=== PATIENT | female | born 1930 | race Caucasian/White ===

== ENCOUNTER 2017-12-13 07:16 | Emergency (ER) | payer SELFPAY ==
[~2017-12-13] VITALS: Ht 157.5 cm; Wt 74.4 kg
[2017-12-13] MEDS ORDERED: OMEPRAZOLE MAGN20 MG PO (07:25)
[2017-12-13] MEDS ORDERED: NEURAPTINE1 GM (07:25)
[2017-12-13] MEDS ORDERED: LISI5 (07:26)
[2017-12-13] MEDS ORDERED: DIPYRIDAMOLE1 GM PO (07:29)
[2017-12-13] MEDS ORDERED: LEVSOD75 PO (07:30)
[2017-12-13] MEDS ORDERED: FURO20 PO (07:30)
[2017-12-13] MEDS ORDERED: Aspir 8181 MG PO (07:30)
== END 2017-12-13 09:09 | disposition home or self-care (01) ==
LOC: ER 07:16
DX: R04.0 Epistaxis (principal); E11.9 Type 2 diabetes mellitus without complications; I10 Essential (primary) hypertension; Z79.899 Other long term (current) drug therapy; Z79.82 Long term (current) use of aspirin
CPT/HCPCS: 99283

== ENCOUNTER 2019-06-11 19:32 | Inpatient (IN) | payer OTHER, MEDICARE ==
[~2019-06-11] VITALS: Ht 157.5 cm; Wt 75.9 kg
[~2019-06-11 19:32] MED LIST: Aspir 8181 MG PO; DIPYRIDAMOLE1 GM PO; FURO20 PO; LEVSOD75 PO; LISI5; NEURAPTINE1 GM; OMEPRAZOLE MAGN20 MG PO
[2019-06-11 20:02] LABS: BASOPHILS ABSOLUTE AUTO 0.05 K/mm3 (0.00-0.23); BASOPHILS PERCENT AUTO 0 % (0-2); EOSINOPHILS ABSOLUTE AUTO 0.01 K/mm3 (0.00-0.68); EOSINOPHILS PERCENT AUTO 0 % (0-6); Hematocrit 39.1 % (33.0-51.0); Hemoglobin 13.2 g/dL (11.5-16.0); IMMATURE GRAN ABSOLUTE AUTO 0.06 K/mm3 (0.00-0.10); IMMATURE GRAN PERCENT AUTO 1 % (0-1); LYMPHOCYTES ABSOLUTE AUTO 1.23 K/mm3 (0.84-5.20); LYMPHOCYTES PERCENT AUTO 10 % (21-46); MONOCYTES ABSOLUTE AUTO 1.28 K/mm3 (0.16-1.47); MONOCYTES PERCENT AUTO 10 % (4-13); Mean Corpuscular HGB 32.2 pg (26.0-34.0); Mean Corpuscular HGB Conc 33.8 g/dL (31.5-36.5); Mean Corpuscular Volume 95 fL (80-100); Mean Platelet Volume 10.2 fL (9.1-12.4); NEUTROPHILS ABSOLUTE AUTO 10.34 K/mm3 (1.96-9.15); NEUTROPHILS PERCENT AUTO 80 % (41-73); Platelet Count 285 K/mm3 (150-400); RDW Coefficient Variation 15.7 % (11.7-14.2); RDW Standard Deviation 54.9 fL (35.1-46.3); White Blood Cell Count 12.97 K/mm3 (4.00-11.30)
[2019-06-11] MEDS ORDERED: ALPR.25 PO (20:14)
[2019-06-11] MEDS ORDERED: Vitamin D2000 UNIT PO (20:14)
[2019-06-11 20:15] LABS: International Normalized Ratio 1.01; Prothrombin Time Results 10.8 Sec (9.7-11.5)
[2019-06-11] MEDS ORDERED: Felodipine ER2.5 MG PO (20:15)
[2019-06-11] MEDS ORDERED: GABA100 PO (20:15)
[2019-06-11] MEDS ORDERED: LEVSOD75 PO (20:15)
[2019-06-11] MEDS ORDERED: DIPYRIDAMOLE1 GM PO (20:15)
[2019-06-11] MEDS ORDERED: FURO20 PO (20:15)
[2019-06-11] MEDS ORDERED: OMEP20ER PO (20:16)
[2019-06-11] MEDS ORDERED: LISI20 PO (20:16)
[2019-06-11] MEDS ORDERED: Norco 5-325 Ta1 EACH PO (20:17)
[2019-06-11] MEDS ORDERED: ONDA4 PO (20:17)
[2019-06-11 20:26] LABS: Alanine Aminotransfer (ALT/SGP 18 U/L (12-78); Albumin, Blood 2.9 g/dL (3.4-5.0); Albumin/Globulin Ratio 0.8 (0.8-1.8); Alk Phos 60 U/L (50-136); Anion Gap 5 mmol/L (6-16); Aspartate Aminotrans (AST/SGOT 25 U/L (12-37); Bilirubin, Total 0.4 mg/dL (0.1-1.0); Blood Urea Nitrogen 11 mg/dL (8-24); Bun/Creatinine Ratio 17.1 (12.0-20.0); CO2, Blood 27 mmol/L (21-32); Calcium, Blood 8.1 mg/dL (8.5-10.1); Chloride, Blood 104 mmol/L (98-108); Creatinine, Blood 0.64 mg/dL (0.40-1.00); Globulin, Blood 3.6 g/dL (2.2-4.0); Glomerular Filtration Rate >60 (60-); Glucose, Blood 112 mg/dL (70-99); Magnesium, Blood 1.8 mg/dL (1.6-2.4); Potassium, Blood 3.7 mmol/L (3.5-5.5); Sodium, Blood 136 mmol/L (136-145); Total Protein, Blood 6.5 g/dL (6.4-8.2); Troponin I <0.015 ng/mL (0.000-0.040)
[2019-06-11 23:23] LABS: Thyroid Stimulating Hormone 0.485 uIU/mL (0.360-4.800)
--- NOTE | 2019-06-12 03:36 | NUR ---
ADMIT NOTE PATIENT PLEASENT AND COOPERATIVE UPON ADMIT. PATIENT DENIES ANY PAIN OR DISCOMFORT AT THIS TIME. PATIENT SETTLED IN AND ORIENTED TO THE ROOM, UNIT, AND CALL LIGHT. PATIENT CURRENTLY RESTING IN BED, WATCHING TV. WILL CONTINUE TO MONITOR PATIENT.
[2019-06-12 04:23] LABS: BASOPHILS ABSOLUTE AUTO 0.03 K/mm3 (0.00-0.23); BASOPHILS PERCENT AUTO 0 % (0-2); EOSINOPHILS ABSOLUTE AUTO 0.04 K/mm3 (0.00-0.68); EOSINOPHILS PERCENT AUTO 0 % (0-6); Hematocrit 38.3 % (33.0-51.0); Hemoglobin 12.6 g/dL (11.5-16.0); IMMATURE GRAN ABSOLUTE AUTO 0.04 K/mm3 (0.00-0.10); IMMATURE GRAN PERCENT AUTO 0 % (0-1); LYMPHOCYTES ABSOLUTE AUTO 1.25 K/mm3 (0.84-5.20); LYMPHOCYTES PERCENT AUTO 12 % (21-46); MONOCYTES ABSOLUTE AUTO 1.18 K/mm3 (0.16-1.47); MONOCYTES PERCENT AUTO 11 % (4-13); Mean Corpuscular HGB 31.8 pg (26.0-34.0); Mean Corpuscular HGB Conc 32.9 g/dL (31.5-36.5); Mean Corpuscular Volume 97 fL (80-100); Mean Platelet Volume 10.3 fL (9.1-12.4); NEUTROPHILS ABSOLUTE AUTO 8.13 K/mm3 (1.96-9.15); NEUTROPHILS PERCENT AUTO 76 % (41-73); Platelet Count 257 K/mm3 (150-400); RDW Coefficient Variation 15.6 % (11.7-14.2); RDW Standard Deviation 54.9 fL (35.1-46.3); Red Blood Cell Count 3.96 M/mm3 (3.80-5.20); White Blood Cell Count 10.67 K/mm3 (4.00-11.30)
[2019-06-12 04:49] LABS: Alanine Aminotransfer (ALT/SGP 17 U/L (12-78); Albumin, Blood 2.7 g/dL (3.4-5.0); Albumin/Globulin Ratio 0.8 (0.8-1.8); Alk Phos 58 U/L (50-136); Anion Gap 6 mmol/L (6-16); Aspartate Aminotrans (AST/SGOT 12 U/L (12-37); Bilirubin, Total 0.5 mg/dL (0.1-1.0); Blood Urea Nitrogen 9 mg/dL (8-24); Bun/Creatinine Ratio 12.6 (12.0-20.0); CO2, Blood 28 mmol/L (21-32); Calcium, Blood 7.9 mg/dL (8.5-10.1); Chloride, Blood 106 mmol/L (98-108); Creatinine, Blood 0.71 mg/dL (0.40-1.00); Globulin, Blood 3.3 g/dL (2.2-4.0); Glomerular Filtration Rate >60 (60-); Glucose, Blood 101 mg/dL (70-99); Potassium, Blood 3.1 mmol/L (3.5-5.5); Sodium, Blood 140 mmol/L (136-145)
--- NOTE | 2019-06-12 07:24 | NUR ---
SHIFT SUMMARY PATIENT APPEARED TO NAP ON AND OFF THROUGHOUT THE REST OF THE NIGHT. PATIENT CURRENTLY RESTING IN THE BED, WATCHING TV. CALL LIGHT WITIN REACH. IV FLUIDS RUNNING PER ORDERS. DR DOW NOTIFIED OF POTASSIUM RESLUTS THIS AM, ORDERS RECEIVED. BEDSIDE REPORT GIVEN TO ONCOMING RN.
[2019-06-12 08:12] LABS: Adenovirus F 40/41 Not Detected (NOT DETECT); Astrovirus Not Detected (NOT DETECT); Campylobacter Sp Not Detected (NOT DETECT); Cryptosporidium Not Detected (NOT DETECT); Cyclospora Cayetanensis Not Detected (NOT DETECT); E. Coli O157 Not Detected (NOT DETECT); Entamoeba Histolytica Not Detected (NOT DETECT); Enteroaggregative E. coli-EAEC Not Detected (NOT DETECT); Enteropathogenic E. coli-EPEC Not Detected (NOT DETECT); Enterotoxigenic E. coli-ETEC Not Detected (NOT DETECT); Giardia Lamblia Not Detected (NOT DETECT); Norovirus GI/GII Not Detected (NOT DETECT); Plesiomonas Shigelloides Not Detected (NOT DETECT); Rotavirus A Not Detected (NOT DETECT); Salmonella Sp Not Detected (NOT DETECT); Sapovirus Not Detected (NOT DETECT); Shiga Toxin-prod E. coli-STEC Not Detected (NOT DETECT); Shigella/Enteroin E. coli-EIEC Not Detected (NOT DETECT); Vibrio Cholerae Not Detected (NOT DETECT); Vibrio Sp Not Detected (NOT DETECT); Yersinia Enterocolitica Not Detected (NOT DETECT)
--- NOTE | 2019-06-12 10:37 | NUR ---
ECHOCARDIOGRAM COMPLETE
--- NOTE | 2019-06-12 14:43 | NUR ---
AFIB W/ RVR W/ EXCERTION REPORTED TO MD KHANNA THAT PATIENT STARTED BACK IN AFIB W/ RVR IN 140S WHILE GOING TO THE RESTROOM. PATIENT SELF CORRECT BACK TO A RATE 90-110'S - HOWEVER, WE NOW HAVE PRN ORDER FOR RVR.
--- NOTE | 2019-06-12 19:30 | NUR ---
PCU SHIFT SUMMARY PATIENT ALERT AND ORIENTED X4. SBA TO BATHROOM DUE TO IV POOL AND LINES. PATIENT ON ROOM AIR, RESP E/U. HEART RATE A FLUTTER IN THE 80'S WITH NOTED RVR THAT HAS RELIEVED WITH MEDICATION PER EMAR. PATIENT HAD NO FURTHER ACUTE EVENTS NOTED. VSS. REPORT GIVEN TO NOC SHIFT RN. CALL LIGHT W/I REACH.
[2019-06-13 04:29] LABS: Albumin, Blood 2.5 g/dL (3.4-5.0); Anion Gap 6 mmol/L (6-16); Blood Urea Nitrogen 7 mg/dL (8-24); Bun/Creatinine Ratio 10.2 (12.0-20.0); CO2, Blood 25 mmol/L (21-32); Calcium, Blood 7.6 mg/dL (8.5-10.1); Chloride, Blood 113 mmol/L (98-108); Creatinine, Blood 0.69 mg/dL (0.40-1.00); Glomerular Filtration Rate >60 (60-); Glucose, Blood 85 mg/dL (70-99); Phosphorus, Blood 2.3 mg/dL (2.5-4.9); Potassium, Blood 4.1 mmol/L (3.5-5.5); Sodium, Blood 144 mmol/L (136-145)
--- NOTE | 2019-06-13 07:20 | NUR ---
SHIFT SUMMARY PATIENT PLEASENT AND COOPERATIVE THROUGHOUT THE NIGHT. PATIENT APPEARED TO NAP ON AND OFF LAST NIGHT. VITAL SIGNS CHARTED. ABX GIVEN PER ORDERS. PATIENT CURRENTLY APPEARS TO BE ASLEEP. REPORT GIVEN TO ONCOMING RN.
--- NOTE | 2019-06-13 10:20 | NUR ---
ASSUMED CARE PATIENT ALERT AND ORIENTED X4. RESP E/U ON ROOM AIR. PATIENT IS NOW MEDICAL STATUS NO TELE - CONFIRMED WITH MD KHANNA THAT SHE WOULD LIKE PATIENT TO BE MED NO TELE AND SHE STATED YES. PATIENT ATE HER BREAKFAST UP IN CHAIR - INDEPENDENT WITH EXCEPTION OF TUBES AND LINES. CALL LIGHT W/I REACH; WILL CONTINUE TO MONITOR.
--- NOTE | 2019-06-13 18:38 | NUR ---
PCU SHIFT SUMMARY PATIENT REMAINS ALERT AND ORIENTED X4 T/O SHIFT. PATIENTS RESP E/U ON ROOM AIR. PATIENT MED NO TELE. PATIENT CONTINUES TO HAVE LOOSE STOOL Q2 HOURS. NO ACUTE DISTRESS NOTED. WILL CONTINUE TO MONITOR AND REPORT TO NOC SHIFT RN.
--- NOTE | 2019-06-13 19:32 | NUR ---
REPORT RECEIVED FROM YUMI DOAN. PT IS ALERT, ORIENTED X3. NO C/O PAIN. HRR, GOOD PEDAL PULSES, TRACE EDEMA NOTED. LUNG SOUNDS CLEAR THROUGHOUT, DENIES SHORTNESS OF BREATH. ABDOEMEN ROUND, SOFT, NON TENDER WITH HYPERACTIVE BOWEL TONES NOTED IN RIGHT LOWER QUAD. PT DENIES DYSURIA, CLEAR YELLOW URINE NOTED. SKIN INTACT, PT HAVING STATES SJE OS JAVOMG FREQUENT BOWEL MOVEMENTS,
--- NOTE | 2019-06-14 05:08 | NUR ---
VSS, EXCEPT HR 53. NO C/O PAIN. PT IS ALERT, ORIENTED X3. LUNG SOUNDS CLEAR TO AUSCULTATION. STABLE OXYGEN SATURATION ON ROOM AIR. DENIES SOB. ABDOMEN ROUND, SOFT, NONTENDER WITH HYPERACTIVE BOWEL TONES NOTED. PT HAD 5 LOOSE,LIQUID STOOLS. NO COMPLICATIONS WITH VOIDING. PT UP TO BATHROOM WITH SUPERVISED ASSIST. SLOW STEADY GAIT NOTED. IV PATENT, FLUSHES WELL. BED IN LOW POSITION, CALL STAFFORD WITHIN REACH.
--- NOTE | 2019-06-14 12:02 | NUR ---
Brief visit this AM. Pt resting in bed and is A&O. Pt denies pain, dyspnea, nausea, and anxiety. Discussed current plan of care with Pt reporting no concerns. Pt is independent of her ADLs and lives in apartments at the [place]. This RN thanked Pt for her service. Pt reports no concerns at this time. Lunch has arrived and this RN ended visit. Spoke with Bedside RN Margaret and discussed case. Margaret reports no concerns at this time. Palliative Care will remain available.
--- NOTE | 2019-06-14 18:20 | NUR ---
PCU 10 TRANSFER TO 334. RECIEVED REPORT, PT ARRIVE TO APPROX 1800. SHE IS A/O X4, PLEASANT AFFECT. SHE STATE NO PAIN @ THIS TIME. DX AFIB W RVR, RATE CONTROLLED @ THIS POINT 70'S, HR IRREG, NO TELE. SHE IS C-DIFF+, STATE DIARRHEA HAS SLOWED, ORAL VANCO ORDERED. SHE HAD DINNER IN PCU, FLUIDS PROVIDED. ORIENTED TO RM & FALL PRECAUTIONS.
--- NOTE | 2019-06-14 19:36 | NUR ---
PCU DAYSHIFT SUMMARY PATIENT ALERT AND ORIENTED X4. RESP E/U ON ROOM AIR. NO ACUTE EVENTS. PATIENT MED NO TELE. BOWEL MOVEMENTS X2-4 HOURS THIS SHIFT - PATIENT STATES IMPROVING. TRANSFERED TO MEDICAL FLOOR VIA WHEEL CHAIR. REPORT GIVEN TO MEDICAL FLOOR RN.
--- NOTE | 2019-06-15 04:35 | NUR ---
SHIFT SUMMARY ADMITTED FOR AFIB W/RVR - NEW ONSET. DNR CODE. POSITIVE FOR CDIFF. [facility]. ON XARELTO NOW. PLAN IS FOR DC TODAY IF BM'S ARE LESS FREQUENT AND MORE FORMED. ORAL VANCO IS IN EMAR. SHE IS A&O X4, INDEPENDENT IN ROOM, ON RA, REGULAR DIET. HX: DIVERTICULITIS, DM2, TIA, GERD, HTN. NO NEW CONCERNS THIS SHIFT.
--- NOTE | 2019-06-15 04:45 | NUR ---
PT STATUS PT DENIES LOOSE STOOLS OR DIARRHEA THIS SHIFT.
[2019-06-15] MEDS ORDERED: Vsl#3 Capsule1 EACH PO (11:09)
[2019-06-15] MEDS ORDERED: METO25ER PO (11:10)
[2019-06-15] MEDS ORDERED: XARELTO20 MG PO (11:11)
[2019-06-15] MEDS ORDERED: VANCOCIN HCL125 MG PO (11:11)
--- NOTE | 2019-06-15 12:56 | NUR ---
DISCHARGE NOTE PT DISCHARGED TO HOME. PT INDEPENDENT IN THE ROOM THIS SHIFT. PT ALERT AND ORIENTED THROUGHOUT THIS SHIFT. IV REMOVED PRIOR TO DISCHARGE. PT EXPRESSED UNDERSTANDING OF DISCHARGE INSTRUCTIONS. PT DRESSED INDEPENDENTLY FOR DISCHARGE. PT TO VEHICLE VIA WHEELCHAIR WITH INFORMATION TECHNOLOGY ASSISTANT. PT'S FRIEND PROVIDING TRANSPORTATION HOME UPON DISCHARGE.
== END 2019-06-15 12:42 | disposition home or self-care (01) | DRG 372 ==
LOC: ER 19:32 → PCU 06-12 00:40 → MEDS 06-14 18:00 → ENPENDDIS 06-15 11:10 → MEDS 06-15 12:42
PROVIDERS: Emergency Medicine; Internal Medicine; ADMIT Internal Medicine
DX: A04.72 Enterocolitis due to Clostridium difficile, not specified as recurrent (principal); I48.92 Unspecified atrial flutter; I48.91 Unspecified atrial fibrillation; E03.9 Hypothyroidism, unspecified; I10 Essential (primary) hypertension; K21.9 Gastro-esophageal reflux disease without esophagitis; E11.9 Type 2 diabetes mellitus without complications; E78.5 Hyperlipidemia, unspecified; Z66 Do not resuscitate; Z87.440 Personal history of urinary (tract) infections; Z86.73 Personal history of transient ischemic attack (TIA), and cerebral infarction without residual deficits
CPT/HCPCS: 0097U; 36415; 71046; 74177; 80053; 80069; 83735; 84443; 84484; 85025; 85610; 85730; 87324; 93005; 93010; 93306; 97110; 97162; 99285-25; J0696; J3480; J7030; J7060; Q9967

== ENCOUNTER 2021-12-21 09:12 | Inpatient (IN) | payer OTHER ==
[~2021-12-21] VITALS: Ht 157.5 cm; Wt 81.9 kg
[~2021-12-21 09:12] MED LIST changes: +ALPR.25 PO; +Felodipine ER2.5 MG PO; +GABA100 PO; +LISI20 PO; +METO25ER PO; +Norco 5-325 Ta1 EACH PO; +OMEP20ER PO; +ONDA4 PO; +VANCOCIN HCL125 MG PO; +Vitamin D1000 UNI1 PO; +Vsl#3 Capsule1 EACH PO; +XARELTO20 MG PO
[2021-12-21 09:48] LABS: BASOPHILS ABSOLUTE AUTO 0.06 K/mm3 (0.00-0.23); BASOPHILS PERCENT AUTO 1 % (0-2); EOSINOPHILS ABSOLUTE AUTO 0.09 K/mm3 (0.00-0.68); EOSINOPHILS PERCENT AUTO 1 % (0-6); Hematocrit 41.3 % (33.0-51.0); Hemoglobin 13.9 g/dL (11.5-16.0); IMMATURE GRAN ABSOLUTE AUTO 0.03 K/mm3 (0.00-0.10); IMMATURE GRAN PERCENT AUTO 0 % (0-1); LYMPHOCYTES ABSOLUTE AUTO 1.41 K/mm3 (0.84-5.20); LYMPHOCYTES PERCENT AUTO 14 % (21-46); MONOCYTES ABSOLUTE AUTO 1.02 K/mm3 (0.16-1.47); MONOCYTES PERCENT AUTO 10 % (4-13); Mean Corpuscular HGB 31.7 pg (26.0-34.0); Mean Corpuscular HGB Conc 33.7 g/dL (31.5-36.5); Mean Corpuscular Volume 94 fL (80-100); Mean Platelet Volume 9.8 fL (9.1-12.4); NEUTROPHILS ABSOLUTE AUTO 7.17 K/mm3 (1.96-9.15); NEUTROPHILS PERCENT AUTO 73 % (41-73); Platelet Count 293 K/mm3 (150-400); RDW Coefficient Variation 15.2 % (11.7-14.2); RDW Standard Deviation 52.5 fL (35.1-46.3); Red Blood Cell Count 4.38 M/mm3 (3.80-5.20); White Blood Cell Count 9.78 K/mm3 (4.00-11.30)
[2021-12-21 10:00] LABS: Albumin, Blood 3.5 g/dL (3.4-5.0); Albumin/Globulin Ratio 0.8 (0.8-1.8); Bilirubin, Total 0.6 mg/dL (0.1-1.0); Bun/Creatinine Ratio 23.9 (12.0-20.0); Calcium, Blood 8.5 mg/dL (8.5-10.1); Creatinine, Blood 0.75 mg/dL (0.40-1.00); Globulin, Blood 4.2 g/dL (2.2-4.0); Potassium, Blood 3.6 mmol/L (3.5-5.5); Total Protein, Blood 7.7 g/dL (6.4-8.2)
[2021-12-21 11:01] LABS: Influenza A, PCR NEGATIVE (NEGATIVE); Influenza B, PCR NEGATIVE (NEGATIVE); Resp Syncytial Virus, PCR NEGATIVE (NEGATIVE); SARS-Cov-2 (COVID-19) PCR, MMC NEGATIVE (NEGATIVE)
[2021-12-21 14:33] LABS: International Normalized Ratio 1.09; Prothrombin Time Results 11.4 Sec (9.7-11.5)
[2021-12-21 15:42] LABS: Source, Urine Voided
[2021-12-21] MEDS ORDERED: OMEP20ER PO (15:48)
[2021-12-21] MEDS ORDERED: PRESERVISION A1 EAC2 PO (15:49)
[2021-12-21] MEDS ORDERED: LISI20 PO (15:50)
[2021-12-21] MEDS ORDERED: FURO20 PO (15:50)
[2021-12-21] MEDS ORDERED: ELIQUIS5 M2 PO (15:51)
[2021-12-21] MEDS ORDERED: Cranberry425 MG PO (15:52)
[2021-12-21] MEDS ORDERED: Amlodipine Bes2.5 MG PO (15:53)
[2021-12-21 15:56] LABS: Appearance, Urine Clear (Clear); Bilirubin, Urine Neg (Neg); Blood, Urine 2+ (Neg); Color, Urine Yellow (P-Yellow); Glucose Qualitative, Urine Neg (Neg); Ketones, Urine Neg (Neg); Leukocyte Esterase, Urine Neg (Neg); Nitrite, Urine Neg (Neg); Protein, Urine Neg (Neg); Specific Gravity, Urine 1.015 (1.003-1.022); Urobilinogen, Urine NORM (Normal)
[2021-12-21 16:23] LABS: Bacteria Few /hpf; Hyaline Casts 0-2 /lpf (0-2); Red Blood Cells, Urine 0-2 /hpf (0-2); Squamous Epithelial Cells Few /hpf (Few); White Blood Cells, Urine 0-2 /hpf (0-5)
--- NOTE | 2021-12-21 18:48 | NUR ---
SHIFT SUMMARY PT A/O X4; PLEASANT AND COOPERATIVE WITH CARE. ADMITTED FROM ED FOR RESP FAILURE RELATED TO CHF EXAC. PT CAME TO THE FLOOR ON BIPAP BUT HAS BEEN ABLE TO BE TITRATED DOWN TO 5 LITERS O2 PER NC. PT IS BEING DIURESED AND IS VOIDING OFTEN. PT IS BEDREST WITH BSC PRIVILEGES. SHE GETS UP WITH A 1 ASSIST. VSS.
--- NOTE | 2021-12-21 23:14 | NUR ---
PT HAS BEEN A&OX4. DENIES ANY SOB OR CHEST PAIN. O2 SATS MAINTAINED > 92% ON 5LPM WHEN AWAKE AND BIPAP AT 14/8 AT 35%. PT UP TO BSC WITH STAND BY ASISST.PT TOLERATES STANDING AND PIVOTING WELL. VOIDING CLEAR, YELLOW URINE WITHOUT DIFFICUTLY. NO COMPLAINTS AT THIS TIME.
[2021-12-22 05:12] LABS: BASOPHILS ABSOLUTE AUTO 0.04 K/mm3 (0.00-0.23); BASOPHILS PERCENT AUTO 0 % (0-2); EOSINOPHILS ABSOLUTE AUTO 0.03 K/mm3 (0.00-0.68); EOSINOPHILS PERCENT AUTO 0 % (0-6); Hematocrit 35.7 % (33.0-51.0); IMMATURE GRAN ABSOLUTE AUTO 0.02 K/mm3 (0.00-0.10); IMMATURE GRAN PERCENT AUTO 0 % (0-1); LYMPHOCYTES ABSOLUTE AUTO 1.68 K/mm3 (0.84-5.20); LYMPHOCYTES PERCENT AUTO 18 % (21-46); MONOCYTES ABSOLUTE AUTO 1.15 K/mm3 (0.16-1.47); MONOCYTES PERCENT AUTO 13 % (4-13); Mean Corpuscular HGB 31.4 pg (26.0-34.0); Mean Corpuscular HGB Conc 33.6 g/dL (31.5-36.5); Mean Corpuscular Volume 94 fL (80-100); Mean Platelet Volume 10.2 fL (9.1-12.4); NEUTROPHILS ABSOLUTE AUTO 6.21 K/mm3 (1.96-9.15); NEUTROPHILS PERCENT AUTO 68 % (41-73); Platelet Count 237 K/mm3 (150-400); RDW Coefficient Variation 15.1 % (11.7-14.2); RDW Standard Deviation 52.1 fL (35.1-46.3); Red Blood Cell Count 3.82 M/mm3 (3.80-5.20); White Blood Cell Count 9.13 K/mm3 (4.00-11.30)
[2021-12-22 05:32] LABS: Bun/Creatinine Ratio 23.6 (12.0-20.0); Calcium, Blood 8.1 mg/dL (8.5-10.1); Creatinine, Blood 0.89 mg/dL (0.40-1.00); Magnesium, Blood 1.9 mg/dL (1.6-2.4); Potassium, Blood 3.3 mmol/L (3.5-5.5)
--- NOTE | 2021-12-22 05:53 | NUR ---
NO ACUTE CHANGES DURING THIS SHIFT. BIPAP O2 INCREASED TO 45% DUE TO REPOSITIONING DECREASING O2 SATS TO 88%. SLEPT MAJORITY OF NIGHT. VSS.
--- NOTE | 2021-12-22 06:04 | NUR ---
HEPRIN GTT HELD PER PHARMACY. WILL RESTART AT 0704
--- NOTE | 2021-12-22 16:28 | NUR ---
SHIFT SUMMARY: CHF EXACERBATION PATIENT IS A&OX4. SHE IS ON 5L NC WITH >90% OXYGEN SATS WHILE AWAKE. WHEN SHE IS NAPPING WITH ONLY THE NC HER OXYGEN SATS ARE BETWEEN 90-94%. PATIENT ALSO HAS SOFT BP'S BUT IS ASYMPTOMATIC. SHE IS TOLERATING PO INTAKE AND IS VOIDING. SHE IS A SBA TO THE BATHROOM AND/OR CHAIR. PATIENT REPORTS "I'M FEELING SO MUCH BETTER ALREADY AND THAT I CAN ACTUALLY BREATHE!". SHE HAD QUITE A FEW FAMILY MEMBERS COME IN/OUT OF HER ROOM THROUGHOUT THE SHIFT TO VISIT. PATIENT IS LAYING IN BED WITH HER EYES CLOSED. CALLS APPROPRIATELY. CALL LIGHT WITHIN REACH. THE PLAN IS TO STOP THE HEPARIN DRIP AND THEN GIVE ELIQUIS AT 1900. SHE WILL ALSO CONTINUE TO RECIEVE IV LASIX. SHE WILL POSSIBLY DISCHARGE HOME EITHER TOMORROW OR FRIDAY IF APPROPRIATE.
[2021-12-23 03:57] LABS: Hematocrit 33.2 % (33.0-51.0); Hemoglobin 10.9 g/dL (11.5-16.0); Mean Corpuscular HGB Conc 32.8 g/dL (31.5-36.5); Mean Corpuscular Volume 94 fL (80-100); Mean Platelet Volume 10.2 fL (9.1-12.4); Platelet Count 224 K/mm3 (150-400); RDW Coefficient Variation 15.2 % (11.7-14.2); RDW Standard Deviation 52.4 fL (35.1-46.3); Red Blood Cell Count 3.52 M/mm3 (3.80-5.20); White Blood Cell Count 6.75 K/mm3 (4.00-11.30)
[2021-12-23 04:24] LABS: Albumin, Blood 2.8 g/dL (3.4-5.0); Albumin/Globulin Ratio 0.8 (0.8-1.8); Bilirubin, Total 0.6 mg/dL (0.1-1.0); Bun/Creatinine Ratio 30.1 (12.0-20.0); Calcium, Blood 8.1 mg/dL (8.5-10.1); Creatinine, Blood 0.93 mg/dL (0.40-1.00); Globulin, Blood 3.4 g/dL (2.2-4.0); Magnesium, Blood 1.7 mg/dL (1.6-2.4); Potassium, Blood 3.3 mmol/L (3.5-5.5); Total Protein, Blood 6.2 g/dL (6.4-8.2)
--- NOTE | 2021-12-23 04:30 | NUR ---
SHIFT SUMMARY: A&OX4. NO COMPLAINTS OF CHEST PAIN OR SOB. O2 SATS MAINTAINED > 90% ON 5LPM WHEN AWAKE AND BIPAP AT 14/8 45% WHILE SLEEPING. PT REPOSITIONS SELF IN BED FOR COMFORT. AMBULATING IN TO BATHROOM WITH STAND BY ASIST TO VOID CLEAR, YELLOW URINE. NO ACUTE CHANGES NOTED DURING THIS SHIFT.
--- NOTE | 2021-12-23 07:28 | NUR ---
ASSUMED CARE: PT SITTING IN CHAIR AT THIS TIME. SATTING 98% ON 3L, TITRATED DOWN TO 2L. AFIB ON TELE IN THE 60S. NO ACUTE NEEDS AT THIS TIME.
--- NOTE | 2021-12-23 12:03 | NUR ---
REMOVED NC TO SEE IF PT NEEDED ANY FURTHER. SATURATION ON ROOM AIR WAS 92%. PT STATED SHE FELT SLIGHTLY SHORT OF BREATH WITH THIS. REPLACED O2 AT 1LNC.
--- NOTE | 2021-12-23 17:42 | NUR ---
SHIFT SUMMARY: PT HAS BEEN RESTING IN ROOM, UP TO TOILET FOR BRP. AFIB IN 60S ON TELE. MED/TELE STATUS. POSSIBLE DC TOMORROW. DENIES FURTHER NEEDS OR CONCERNS.
[2021-12-24] MEDS ORDERED: MELA3 PO (11:56)
[2021-12-24] MEDS ORDERED: MIDO5 PO (11:56)
[2021-12-24] MEDS ORDERED: ALDACTONE25 MG PO (11:57)
--- NOTE | 2021-12-24 14:11 | NUR ---
PT DISCHARGED FROM THE UNIT. IVS REMOVED. MEDICATIONS FAXED TO [facility]. DISCHARGE INSTRUCTIONS REVIEWED AND SENT WITH PT. SHE LEFT VIA WHEEL CHAIR.
== END 2021-12-24 14:05 | disposition home or self-care (01) | DRG 282 ==
LOC: ER 09:12 → PCU 12:37
PROVIDERS: Emergency Medicine; Internal Medicine; Nurse Practitioner Acute Care; ADMIT Internal Medicine
DX: I11.0 Hypertensive heart disease with heart failure (principal); I21.A1 Myocardial infarction type 2; Z66 Do not resuscitate; E11.9 Type 2 diabetes mellitus without complications; I48.91 Unspecified atrial fibrillation; Z51.5 Encounter for palliative care; E03.9 Hypothyroidism, unspecified; K21.9 Gastro-esophageal reflux disease without esophagitis; Z88.6 Allergy status to analgesic agent; Z88.5 Allergy status to narcotic agent; Z88.8 Allergy status to other drugs, medicaments and biological substances; Z79.899 Other long term (current) drug therapy; Z86.73 Personal history of transient ischemic attack (TIA), and cerebral infarction without residual deficits; Z90.710 Acquired absence of both cervix and uterus
CPT/HCPCS: 0241U; 36415; 71045; 80048; 80053; 81001; 83735; 83880; 84484; 85025; 85027; 85610; 85730; 93005; 93010; 93306; 94640; 94660; 94664; 94761; 94762; 96365; 96375; 99291-25; A9270; J1644; J1940; J2060

== ENCOUNTER 2021-12-25 12:36 | Inpatient (IN) | payer OTHER ==
[~2021-12-25] VITALS: Ht 160 cm; Wt 82.3 kg
[~2021-12-25 12:36] MED LIST changes: +ALDACTONE25 MG PO; +Amlodipine Bes2.5 MG PO; +Cranberry425 MG PO; +ELIQUIS5 M2 PO; +MELA3 PO; +MIDO5 PO; +PRESERVISION A1 EAC2 PO
[2021-12-25 13:48] LABS: BASOPHILS ABSOLUTE AUTO 0.06 K/mm3 (0.00-0.23); BASOPHILS PERCENT AUTO 1 % (0-2); EOSINOPHILS ABSOLUTE AUTO 0.05 K/mm3 (0.00-0.68); EOSINOPHILS PERCENT AUTO 1 % (0-6); Hematocrit 40.7 % (33.0-51.0); Hemoglobin 12.9 g/dL (11.5-16.0); IMMATURE GRAN ABSOLUTE AUTO 0.03 K/mm3 (0.00-0.10); IMMATURE GRAN PERCENT AUTO 0 % (0-1); LYMPHOCYTES ABSOLUTE AUTO 2.02 K/mm3 (0.84-5.20); LYMPHOCYTES PERCENT AUTO 22 % (21-46); MONOCYTES ABSOLUTE AUTO 0.59 K/mm3 (0.16-1.47); MONOCYTES PERCENT AUTO 6 % (4-13); Mean Corpuscular HGB 30.9 pg (26.0-34.0); Mean Corpuscular HGB Conc 31.7 g/dL (31.5-36.5); Mean Corpuscular Volume 97 fL (80-100); Mean Platelet Volume 10.6 fL (9.1-12.4); NEUTROPHILS ABSOLUTE AUTO 6.66 K/mm3 (1.96-9.15); NEUTROPHILS PERCENT AUTO 71 % (41-73); Platelet Count 288 K/mm3 (150-400); RDW Coefficient Variation 15.2 % (11.7-14.2); RDW Standard Deviation 54.4 fL (35.1-46.3); Red Blood Cell Count 4.18 M/mm3 (3.80-5.20); White Blood Cell Count 9.41 K/mm3 (4.00-11.30)
[2021-12-25 14:04] LABS: Albumin, Blood 3.3 g/dL (3.4-5.0); Albumin/Globulin Ratio 0.8 (0.8-1.8); Bilirubin, Total 0.7 mg/dL (0.1-1.0); Bun/Creatinine Ratio 28.3 (12.0-20.0); Calcium, Blood 9.4 mg/dL (8.5-10.1); Creatinine, Blood 0.81 mg/dL (0.40-1.00); Globulin, Blood 4.2 g/dL (2.2-4.0); Potassium, Blood 3.9 mmol/L (3.5-5.5); Total Protein, Blood 7.5 g/dL (6.4-8.2)
--- NOTE | 2021-12-25 17:46 | NUR ---
SHIFT SUMARY PT WAS A NEW ER ADMIT THIS PM AND IS A/Ox4. PT WAS DC'D ON 12/24/21, PT WOKE UP THIS AM WITH SOB AND "NOT BEING ABLE TO BREATH". PT WAS ON BIPAP AND RECEIVED LASIX IN THE ER. PT NOLONGER ON BIPAP FOR SHE HAS BEEN MAINTAINING SPO2 >93 ON 4L NC. PT DOES NOT REPORT SOB AT REST, BUT DESAT's QUICKLY WITH AMBULATION OR WHEN TALKING. LS HAVE INSPIRATORY CRACKLES T/O. PALLATIVE CARE CONSULT IS IN PLACE AND [facility]EXT [facility] DAYS. PT EKG IN THE ER SHOWED AFIB WITH RVR. SHE STILL IS IN A AFIB, BUT RVR HAS SINCE RESOLVED. VSS, NADN T/O MY SHIFT
--- NOTE | 2021-12-25 18:56 | NUR ---
Pt returned to hospital very dyspnic and coarse. difficuty in interacting. He freiend lishatkdre mcintyre was with her and will update her son. their plan is to transition to hospice hopefully at the [place].
[2021-12-26 03:58] LABS: BASOPHILS ABSOLUTE AUTO 0.04 K/mm3 (0.00-0.23); BASOPHILS PERCENT AUTO 1 % (0-2); EOSINOPHILS ABSOLUTE AUTO 0.06 K/mm3 (0.00-0.68); EOSINOPHILS PERCENT AUTO 1 % (0-6); Hematocrit 33.4 % (33.0-51.0); Hemoglobin 11.3 g/dL (11.5-16.0); IMMATURE GRAN ABSOLUTE AUTO 0.01 K/mm3 (0.00-0.10); IMMATURE GRAN PERCENT AUTO 0 % (0-1); LYMPHOCYTES ABSOLUTE AUTO 1.62 K/mm3 (0.84-5.20); LYMPHOCYTES PERCENT AUTO 20 % (21-46); MONOCYTES ABSOLUTE AUTO 1.06 K/mm3 (0.16-1.47); MONOCYTES PERCENT AUTO 13 % (4-13); Mean Corpuscular HGB 31.8 pg (26.0-34.0); Mean Corpuscular HGB Conc 33.8 g/dL (31.5-36.5); Mean Corpuscular Volume 94 fL (80-100); Mean Platelet Volume 10.5 fL (9.1-12.4); NEUTROPHILS ABSOLUTE AUTO 5.14 K/mm3 (1.96-9.15); NEUTROPHILS PERCENT AUTO 65 % (41-73); Platelet Count 265 K/mm3 (150-400); RDW Coefficient Variation 14.8 % (11.7-14.2); RDW Standard Deviation 51.7 fL (35.1-46.3); Red Blood Cell Count 3.55 M/mm3 (3.80-5.20); White Blood Cell Count 7.93 K/mm3 (4.00-11.30)
[2021-12-26 04:19] LABS: Albumin, Blood 2.7 g/dL (3.4-5.0); Albumin/Globulin Ratio 0.7 (0.8-1.8); Bilirubin, Total 0.8 mg/dL (0.1-1.0); Bun/Creatinine Ratio 28.5 (12.0-20.0); Calcium, Blood 8.9 mg/dL (8.5-10.1); Creatinine, Blood 0.88 mg/dL (0.40-1.00); Globulin, Blood 3.9 g/dL (2.2-4.0); Potassium, Blood 3.9 mmol/L (3.5-5.5); Total Protein, Blood 6.6 g/dL (6.4-8.2)
--- NOTE | 2021-12-26 06:11 | NUR ---
SHIFT SUMMARY PATIENT IS ALERT AND ORIENTED X4. 02 SATS 95% ON 5L VIA NC, LS CRACKLES. HR A.FIB 60S. BP STABLE, DENIES CP/PRESSURE. PUREWICK IN PLACE, GOOD URINE OUTPUT. PATIENT SLEPT MOST THE NIGHT, TURNED PATIENT WOULD ALLOW. CALL LIGHT IN REACH.
--- NOTE | 2021-12-26 12:30 | NUR ---
SUCTION CANISTER AND TUBING CHANGED, NEW PUREWICK WAS PLACED AT THIS TIME. THE SUCTION WAS FOUND TO BE SET TO HIGH TODAY, THE SUCTION RATE IS AT 75mmHg PER FDA GUIDELINES WHICH SEEMS TO BE WORKING WELL. AYESHA-AREA WAS CLEANED, NO SKIN BREAKDOWN NOTED TO PREI-AREA.
--- NOTE | 2021-12-26 12:50 | NUR ---
UPDATE CHANGED PT'S PUREWICK, PERFORMED PERICARE AND REPOSTIONED PT. NEW PUREWICK IN PLACE AND HOOKED UP TO SUCTION. DRAINING CLEAAR STRAW COLORED URINE. WILL CONTINUE TO MONITOR
--- NOTE | 2021-12-26 14:14 | NUR ---
MET WITH PATIENT BRIEFLY TO CLARIFY WHAT HER GOALS ARE. HER PREFERANCE IS TO GO TO THE [facility] IF A BED BECOMES AVAILABLE BUT IS AWARE OF POSSIBLE PLAN TO GO HOME WITH [facility].
--- NOTE | 2021-12-26 17:11 | NUR ---
SHIFT SUMMARY PT IS A/Ox4 AND FOLLOWS DIRECTIONS GIVEN BY STAFF. PT WHEN FOR DIAGNOSTIC ANGIO THIS AM, NO INTERVENTION NEEDED. RIGHT RADIAL AND RIGHT FEMORAL ACCESS SITE FREE OF ANY BLEEDING, PULSES PRESENT ABOVE AND BELOW THE SITES. RIGHT HAND AND LEG WARM TO THE TOUCH WITH NO REPORTS OF TINGLING OR SENSATION LOSS. RIGHT RADIAL ACCESS SITE DOES HAVE A SMALL HEMATOMA AND SLIGHTLY PAINFUL TO THE TOUCH. PT MAINTAINS SPO2>92% ON RA WITH NO SOB OR DYSPNEA NOTED. POSSIBLE DC TOMORROW 12/27/21. VSS, NADN T/O THE SHIFT
[2021-12-27 04:00] LABS: Hematocrit 35.2 % (33.0-51.0); Hemoglobin 11.7 g/dL (11.5-16.0); Mean Corpuscular HGB 31.1 pg (26.0-34.0); Mean Corpuscular HGB Conc 33.2 g/dL (31.5-36.5); Mean Corpuscular Volume 94 fL (80-100); Mean Platelet Volume 10.1 fL (9.1-12.4); Platelet Count 284 K/mm3 (150-400); RDW Coefficient Variation 14.6 % (11.7-14.2); RDW Standard Deviation 50.4 fL (35.1-46.3); Red Blood Cell Count 3.76 M/mm3 (3.80-5.20); White Blood Cell Count 6.82 K/mm3 (4.00-11.30)
[2021-12-27 04:24] LABS: Albumin, Blood 2.6 g/dL (3.4-5.0); Albumin/Globulin Ratio 0.7 (0.8-1.8); Bilirubin, Total 0.6 mg/dL (0.1-1.0); Bun/Creatinine Ratio 28.4 (12.0-20.0); Calcium, Blood 8.4 mg/dL (8.5-10.1); Creatinine, Blood 0.99 mg/dL (0.40-1.00); Globulin, Blood 3.9 g/dL (2.2-4.0); Potassium, Blood 3.7 mmol/L (3.5-5.5); Total Protein, Blood 6.5 g/dL (6.4-8.2)
--- NOTE | 2021-12-27 07:13 | NUR ---
PATIENT REPORTS SLEEPING COMFORTABLY THROUGHOUT THE NIGHT. MS. ALCANTARA'S OXYGEN DEMANDS WHILE SLEEPING DID INCREASE FROM 3 LPM NASAL CANNULA TO 12 LPM NASAL CANNULA. AT ONE POINT, DECISION WAS MADE TO TRY THE OXYMISER AND HER OXYGEN SATURATION IMPROVED FROM THE MID TO HIGH 80 PERCENTILE TO LOW TO MID 90 PERCENTILE RANGE. THE NIGHT WENT ON, HER OXYGEN DEMANDS DECREASED AND WERE ABLE TO TITRATE DOWN TO 4 LPM ON THE OXYMISER.
--- NOTE | 2021-12-27 09:00 | NUR ---
PUREWICK CHANGED, NO SKIN BREAKDOWN NOTED. NO ADDITIONAL URINE OUTPUT SINCE NOC SHIFT RECORDED URINE OUTPUT AT 0500 ON CANISTER. PT REMAINS A/O X4, ANSWERS QUESTIONS APPROPRIATELY. NOW THAT AWAKE OXYGEN TITRATED TO 3L VIA OXMIZER, PT REPORTS THAT OXYMIZER CANNULA IS MORE COMOFRTABLE TO HER SO IT IS LEFT IN PLACE. PT APPEARS MORE OPTIMISTIC TODAY FROM THE PREVIOUS DAY. FINE CRACKLES REMAIN IN BASES, SHE REPORTS IMPROVEMENT IN WORK OF BREATHING.
[2021-12-28 04:11] LABS: Bun/Creatinine Ratio 35.7 (12.0-20.0); Calcium, Blood 8.8 mg/dL (8.5-10.1); Creatinine, Blood 0.84 mg/dL (0.40-1.00); Potassium, Blood 3.7 mmol/L (3.5-5.5)
--- NOTE | 2021-12-28 06:53 | NUR ---
NO ACUTE EVENTS OVERNIGHT LAST NIGHT. PATIENT REPORTS SLEEPING OFF AND ON THROUGH THE NIGHT. NO ISSUES WITH OXYGEN LEVEL DESATURATION WITH SLEEP LIKE WITH THE PREVIOUS NIGHT. MS. ALCANTARA REMAINS ON 3 LPM SUPPLEMENTAL OXYGEN VIA THE OXYMIZER.
--- NOTE | 2021-12-28 10:23 | NUR ---
AM NOTE: PATIENT ALERT AND ORIENTED X4. PERRLA. OVERALL WEAK. SOME NUMBNESS TO FEET. ONE PERSON ASSIST. Q2 TURNING AND NEEDED. ON 3L OXYMIZER SATING ABOVE 94%. SOB WITH MOVEMENTS. LUNGS SOUNDING CLEAR AND DIM. TELE SHOWING AFIB WITH HR 60'S. DENIES CHEST PAIN/PRESSURE. BP STABLE. DENIES ABDOMINAL PAIN/NAUSEA, POOR APPEATITE. DRINKNING WATER. PUREWICK IN PLACE, DRAINING CLEAR/YELLOW URINE. PATIENT WANTING TO GO HOME ON HOSPICE. WORKING WITH CASE MANAGEMENT TO GET HOME. DENIES NEEDS AT THIS TIME. USING CALL LIGHT. WILL CONTINUE TO MONITOR.
--- NOTE | 2021-12-28 15:51 | NUR ---
TRANSFER NOTE: NO ACUTE CHANGES. SEE AM NOTE. PATIENT REMAINS ON 3L OXYMIZER. NO TELE. DENIES PAIN. VITAL SIGNS REMAIN STABLE. FAMILY AND FRIENDS IN TO VISIT. PURE WICK REPLACED AND DRAINING WELL. Q2 TURNING PATIENT ALLOWS. POOR APPEATITE. DRINKING WATER. TRANSFER WITH ALL PERSONAL BELONGINGS VIA BED.
--- NOTE | 2021-12-28 16:33 | NUR ---
RN NOTE MS ALCANTARA WAS TRANSFERED TO MEDICAL UNIT FROM PACU AT 1600HRS ON HER BED. SHE HAS PUREWICK IN PLACE WHICH IS TO CONTINUOUS SUCTION. ON 3L OXIMISER. SHE DENIES ANY PAIN OR DISCOMFORT. SHE DENIES ANY SOB LONG SHE IS ON OXIMISER. HER FRIEND LIANG WAS NOTIFIED OF ROOM CHANGE. BED LOW. CALL LIGHT IN REACH.
--- NOTE | 2021-12-29 07:30 | NUR ---
no changes overnight. patient slept well after HS melatonin. Patient stated that she "is done with the fight and ready to go home with hospice." No complaints of pain overnight that were not successfully resolved with positioning. Patient is A&OX4, clearly depressed and cooperative with care.
--- NOTE | 2021-12-29 10:31 | NUR ---
AM NOTE MS ALCANTARA IS ORIENTATED, ENGAGES IN CONVERSATION, BUT HAS TOLD ME SEVERAL TIMES THAT SHE FEELS READY TO . SHE SAID THAT SHE IS NOT CAODAISM, BUT WOULD LIKE TO TALK TO THE LUCY. MESSAGE VIA RN CASTING AND CURING OPERATOR. SHE SAID THAT SHE FEELS VERY WEAK AND DID NOT WANT TO GET UP OUT OF BED. SHE ROLLED ONTO THE BEDPAN WITH 1 PERSON ASSIST. PUREWICK IN PLACE. SKIN INTACT. DENIES PAIN, SOB CONTROLLED WITH 3L OXIMISER AND REST. BED LOW, CALL LIGHT IN REACH. BED ALARM ON.
--- NOTE | 2021-12-29 11:30 | NUR ---
Spiritual Care Visit. Pt. is awake in bed, and welcomes my visit. Pt. verbalizes clearly that she is not interested in matters of bonifacio, but would love to visit. Friend is present. With an affirming pastoral care and a calm presence facilitate a life review. Pt. displays evidence of being clear thinking, but exhausted. Pt. verbalizes that she is not able to care herself. While in the past she would have preferred to recieve care at home, she feels she needs the support of a SNF. Pt. verbalized gratitude for the spiritual care visit. and would welcome further support. Briefed with Palliative Care.
--- NOTE | 2021-12-29 17:17 | NUR ---
SHIFT SUMMARY MS ALCANTARA IS ORIENTATED, DENIES PAIN EXCEPT FOR SOME NEUROPATHY TO HER FEET. NO SOB ON 3L OXIMISER. SHE HAS BEEN CHATTING WITH FAMILY/FRIENDS TODAY AND HAS BEEN LAUGHING, BUT OFTEN SAYS THAT SHE IS READY FOR THE END OF LIFE. SHE DENIES HAVING ANY PLAN FOR HURTING HERSELF, IS CALLING FRIENDS TO HAVE SOMEONE WATER HER PLANTS FOR HER. SHE SEEMS FLAT AND DEPRESSED AT TIMES, SAID SHE HATES BEING THIS WEAK AND DEPENDENT UPON PEOPLE FOR CARE. NO BM TODAY. PURE WICK IN PLACE. SHE SAID SHE FELT TOO WEAK TO GET UP OUT OF BED TODAY. 2 OF THE MIDIDRINE DOSES HELD TODAY SBP GREATER THAN 130. BED LOW. CALL LIGHT IN REACH.
--- NOTE | 2021-12-30 11:47 | NUR ---
RN NOTE MS ALCANTARA IS ORIENTATED, SEEMS A LITTLE LESS DEPRESSED TODAY. SHE SAID SHE FEELS LESS SOB. SHE GOT UP WITH ASSISTANCE TO BSC AND IS COMFORTABLE IN THE RECLINER NOW WITH FEET ELEVATED. SHE HAS HAD BM AND VOIDED IN THE COMMODE, PREFERS TO KEEP PURE WICK IN PLACE SHE SAID SHE IS TOO EXHAUSTED TO GET UP FREQUENTLY TO THE BSC. C/O MILD BACK PAIN WHICH SHE SAID SHE THOUGHT IMPROVED ON SITTING IN THE RECLINER. CALL LIGHT IN REACH.
--- NOTE | 2021-12-30 19:22 | NUR ---
SHIFT SUMMARY MS ALCANTARA DID WELL TODAY. TRANSFERED INTO RECLINER AND SAT OUT FOR A LARGE PART OF THE DAY. SHE IS BACK IN BED AND COMFORTABLE NOW, PILLOW UNDER HER HIP. SEE PRIOR NOTE ALSO. SHE HAS BEEN A BIT MORE CHEERFUL TODAY AND IS APPRECIATIVE OF HER CARE HERE AT [facility]. SHE ATE WELL FOR BREAKFAST AND LUNCH. PUREWICK IN PLACE AND WORKING WELL. SHE IS GENERALLY WEAK AND TIRED BUT COMMUNICATES WITH FRIENDS AND FAMILY REGULARLY. NO PAIN MEDS, BREATHING WELL ON 3L OXIMISER. BED LOW, CALL LIGHT IN PLACE.
--- NOTE | 2021-12-31 04:48 | NUR ---
SHIFT SUMMARY NO ACUTE CHANGES TO PATIENT CONDITION. PT SLEEPING MUCH OF THE NIGHT. PT HAS NO COMPLAINTS AT THIS TIME. CALL LIGHT IS WITHIN HER REACH.
[2021-12-31 04:57] LABS: Hemoglobin 13.3 g/dL (11.5-16.0); Mean Corpuscular HGB 30.9 pg (26.0-34.0); Mean Corpuscular HGB Conc 33.3 g/dL (31.5-36.5); Mean Corpuscular Volume 93 fL (80-100); Mean Platelet Volume 10.1 fL (9.1-12.4); Platelet Count 294 K/mm3 (150-400); RDW Coefficient Variation 13.9 % (11.7-14.2); RDW Standard Deviation 47.8 fL (35.1-46.3); White Blood Cell Count 5.71 K/mm3 (4.00-11.30)
[2021-12-31 05:07] LABS: Albumin, Blood 2.7 g/dL (3.4-5.0); Albumin/Globulin Ratio 0.7 (0.8-1.8); Bilirubin, Total 0.4 mg/dL (0.1-1.0); Bun/Creatinine Ratio 31.5 (12.0-20.0); Calcium, Blood 8.7 mg/dL (8.5-10.1); Creatinine, Blood 0.73 mg/dL (0.40-1.00); Globulin, Blood 3.9 g/dL (2.2-4.0); Potassium, Blood 3.6 mmol/L (3.5-5.5); Total Protein, Blood 6.6 g/dL (6.4-8.2)
--- NOTE | 2021-12-31 08:00 | NUR ---
pt laying in bed eating breakfast, visitor in room, pt verbalized that she is done and ready to , and asked how she does that by not eating, not taking medications, did take po meds with water without diff, a/ox3, cooperative with care, follows commands well, denies pain, lungs clear, dim t/o, on 3 02 via n/c, asking how we know when she doesn't need it any more, will try to wean, hrr, no edema noted to b/l le, ppp faint, cap refill <3sec, vs stable, afebrile, btx4, abd flat soft nontender, voids without diff, skin c/w/d, maew, weak, is two person assist, call light in reach.
--- NOTE | 2021-12-31 11:34 | NUR ---
weaned pt off 02, she is 93% on r/a, no needs at this time, call light and bedside table, in reach.
--- NOTE | 2021-12-31 18:04 | NUR ---
Pt is a heavy two person transfer to chair, she was willing to get up for dinner, reports no appetite, no acute changes today, had lots of company, call light in reach.
--- NOTE | 2021-12-31 19:25 | NUR ---
spportive visit today with her friend on plan of care. pt comfortable hope is logistics worked out tomorrow for ilene.
[2022-01-01] MEDS ORDERED: AMLO5 PO (02:15)
[2022-01-01] MEDS ORDERED: MENTHOL-CAMPHO120 GM TOP (02:16)
[2022-01-01] MEDS ORDERED: CARV3.125 PO (02:17)
[2022-01-01] MEDS ORDERED: LIDO700A20 TOP (02:19)
[2022-01-01] MEDS ORDERED: LISI20 PO (02:19)
[2022-01-01] MEDS ORDERED: METO25ER PO (02:21)
[2022-01-01] MEDS ORDERED: MULVITA PO (02:22)
[2022-01-01] MEDS ORDERED: XARELTO20 MG PO (02:23)
--- NOTE | 2022-01-01 04:37 | NUR ---
A&Ox4. PLEASANT AND COOPERATIVE WITH CARE. VSS. PUREWICK IN PLACE FOR VOIDING D/T DECONDITIONING AND GENERALIZED WEAKNESS. CONTINUES TO REPEAT, "I'M DONE. I DON'T WANT TO DO THIS ANYMORE" AND WISHES TO PURSUE HOSPICE CARE. DENIES C/O CP OR GENERALIZED SOB, BUT DOES EXPERIENCE DYSPNEA AND DESATTING WITH EXERTION. PLACED ON 3L/min O2 VIA NASAL CANNULA BY RT LAST NIGHT. LUNG SOUNDS W/ CRACKLES IN BILATERAL BASES. WILL REPORT TO ONCOMING RN.
[2022-01-01 15:11] LABS: Influenza A, PCR NEGATIVE (NEGATIVE); Influenza B, PCR NEGATIVE (NEGATIVE); Resp Syncytial Virus, PCR NEGATIVE (NEGATIVE); SARS-Cov-2 (COVID-19) PCR, MMC NEGATIVE (NEGATIVE)
--- NOTE | 2022-01-01 17:00 | NUR ---
SHIFT SUMMARY PT IN BED THROUGH DAY. VISITORS IN THIS MORNING. PLANS FOR PT TO TRANSFER TO [facility] TOMORROW FOR HOSPICE. DOZING ON AND OFF THROUGH THE DAY. DENIES ANY PAIN.
--- NOTE | 2022-01-02 04:28 | NUR ---
RESIDENCE LIFE DIRECTOR SUMMARY: A&OX4. PLEASANT AND COOPERATIVE WITH CARE. VSS. METATARSAL. MAINTAINING SPO2 >90% 3L/min VIA NC. NO C/O DYSPNEA. C/O LEFT METATARSAL PAIN. URIC ACID LEVEL ELEVATED; AWAITING PROVIDER ADDRESS. ROXANOL X2 ADMINISTERED WITH RELIEF. ANTICIAPTES DC TO SNF TODAY. WILL REPORT TO ONCOMING RN.
[2022-01-02 11:57] LABS: Influenza A, PCR NEGATIVE (NEGATIVE); Influenza B, PCR NEGATIVE (NEGATIVE); Resp Syncytial Virus, PCR NEGATIVE (NEGATIVE); SARS-Cov-2 (COVID-19) PCR, MMC NEGATIVE (NEGATIVE)
--- NOTE | 2022-01-02 16:37 | NUR ---
REPORT CALLED TO [facility] TO [place]. PT PICKED UP BY [facility] BY TAYE. REPORTED PAIN TO L GREAT TOE IS IMPROVING AND TINGLY NOW. REMAINS RED BUT LESS WARM. PT EXCITED TO FINALLY LEAVE.
== END 2022-01-02 15:40 | disposition hospice, home (50) | DRG 280 ==
LOC: ER 12:36 → MEDS 12:37 → PCU 15:59 → MEDS 12-26 15:11 → PCU 12-26 15:50 → MEDS 12-28 15:53
PROVIDERS: Emergency Medicine; Student in an Organized Health Care Education/Training Program; ADMIT Internal Medicine
PROC: 5A09357 Assistance with Respiratory Ventilation, Less than 24 Consecutive Hours, Continuous Positive Airway Pressure (ICD-10-PCS; principal; 2021-12-26)
DX: I11.0 Hypertensive heart disease with heart failure (principal); J96.21 Acute and chronic respiratory failure with hypoxia; I21.A1 Myocardial infarction type 2; I48.20 Chronic atrial fibrillation, unspecified; I50.9 Heart failure, unspecified; E03.9 Hypothyroidism, unspecified; M10.9 Gout, unspecified; Z66 Do not resuscitate; Z51.5 Encounter for palliative care; I34.0 Nonrheumatic mitral (valve) insufficiency; Z20.822 Contact with and (suspected) exposure to COVID-19; E11.9 Type 2 diabetes mellitus without complications; K21.9 Gastro-esophageal reflux disease without esophagitis; M79.675 Pain in left toe(s); Z79.01 Long term (current) use of anticoagulants; Z86.73 Personal history of transient ischemic attack (TIA), and cerebral infarction without residual deficits; Z88.5 Allergy status to narcotic agent; Z88.8 Allergy status to other drugs, medicaments and biological substances; Z79.899 Other long term (current) drug therapy; Z87.19 Personal history of other diseases of the digestive system; Z86.19 Personal history of other infectious and parasitic diseases; Z90.710 Acquired absence of both cervix and uterus
CPT/HCPCS: 0241U; 36415; 71045; 80048; 80053; 83735; 83880; 84484; 84550; 85025; 85027; 93005; 93010; 94660; 94760; 94762; 96374; 96376; 99285-25; A9270; G0378; J1940